=== PATIENT | female | born 1970 | race Caucasian/White ===

== ENCOUNTER → 2017-01-28 | Day surgery (SDC) | payer OTHER ==
[~2017-01-28] MED LIST: Glycopyrrolate 0.2 MG/ML SDV IVPUSH ONE; Lactated Ringers 1,000 ML IV SCH; Propofol 200 MG/20 ML SDV IV ONE
[2017-01-28 08:45] VITALS: BP 138/85
--- NOTE | 2017-01-28 09:27 | OR ---
DATE OF OPERATION: 01/28/2017 PREOPERATIVE DIAGNOSIS: ABDOMINAL PAIN, REFLUX. POSTOPERATIVE DIAGNOSIS: ABDOMINAL PAIN, REFLUX. SURGEON: Lan Banks MD PROCEDURE: ESOPHAGOGASTRODUODENOSCOPY WITH KIARA. 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 COMPLICATIONS: None. SPECIMEN: CLOtest. FINDINGS: 1. Full-length EGD. 2. Status post Tena-en-Y gastric bypass. 3. Hiatal hernia with GERD. RECOMMENDATIONS: We will give patient trial of proton pump therapy. If unsuccessful, she may want to proceed with surgical consultation. INDICATIONS: The patient has been having ongoing issues with reflux. Her dentist told her she is losing enamel on her teeth and believes it is from that. We elected to proceed with EGD. DESCRIPTION OF PROCEDURE: The patient was prepped and draped, placed in the left lateral decubitus position. A lubricated Olympus gastroscope was inserted over a bit and easily intubated in the esophagus. Esophageal lining was benign in its entire course. The Z-line was crisp and sharp around 35-36 cm. It was associated with a aeig-[id number]-[id number] sized hiatal hernia with a significant amount of spontaneous reflux seen. No stricturing, ulceration or Costa's changes were seen at the distal esophagus. The scope was then intubated into the stomach. The patient has a small residual stomach status post her bypass. The Tena-en-Y looks excellent. No anastomotic ulcers are seen. A good evaluation of the gastric lining showed no signs of any polyps, mass, lesions, ulcerations etc. Air was then suctioned and scope was removed without complication. MACRINA/ORIN /[id number]
== END ==
LOC: CC.SDS 07:09
PROVIDERS: ATTEND Family Medicine
DX: K44.9 Diaphragmatic hernia without obstruction or gangrene (principal); K21.9 Gastro-esophageal reflux disease without esophagitis; E78.5 Hyperlipidemia, unspecified; E04.1 Nontoxic single thyroid nodule; E66.9 Obesity, unspecified; Z88.8 Allergy status to other drugs, medicaments and biological substances; Z98.84 Bariatric surgery status; Z79.899 Other long term (current) drug therapy; Z68.41 Body mass index [BMI] 40.0-44.9, adult; Z90.710 Acquired absence of both cervix and uterus; Z98.51 Tubal ligation status
CPT/HCPCS: 43235; 87081; J2704; J7120

== ENCOUNTER 2021-09-27 11:00 | Emergency (ER) | payer OTHER ==
[2021-09-27 11:08] VITALS: BP 154/77; PULSE 73
[2021-09-27] MEDS: Ketorolac 30 MG/ML SDV IM ONE (11:40)
[2021-09-27] MEDS: Take Home: Acetaminophen/HYDROcodone 325-5 MG, 2 Tab Pack PO ONE (11:46)
== END 2021-09-27 12:11 | disposition home or self-care (01) ==
LOC: CC.ED 11:00
DX: S60.222A Contusion of left hand, initial encounter (principal); E03.9 Hypothyroidism, unspecified; Z79.899 Other long term (current) drug therapy; Z88.1 Allergy status to other antibiotic agents; X58.XXXA Exposure to other specified factors, initial encounter
CPT/HCPCS: 73130-LT; 96372; 99283; 99284; A9270-GY; J1885